=== PATIENT | female | born 1975 ===

== ENCOUNTER 2017-03-22 10:13 | Emergency (ER) | payer SELFPAY ==
[2017-03-22 10:33] VITALS: TEMP 97
--- NOTE | 2017-03-22 11:00 | ED PDOC ---
Lower Extremity Pain/Injury Time Seen by Provider: 03/22/17 10:31 Chief Complaint (Nursing): Lower Extremity Problem/Injury Chief Complaint (Provider): Left knee injury s/p mechanical fall History Per: Patient Onset/Duration Of Symptoms: Days (x7) Current Symptoms Are (Timing): Still Present Additional Complaint(s): Samantha Beasley is a 42 year old female presenting to the ED after experiencing a mechanical fall one week prior to arrival and experiencing an injury to her left knee. The patient reports pain, swelling, and ecchymosis since then but has not had time for a medical evaluation until today, prompted her ED visit. The patient reports pain worsens on ambulation. She denies any weakness or paresthesia. PMD: Vamsi Goldsmith MD Past Medical History Reviewed: Historical Data, Nursing Documentation, Vital Signs Vital Signs: Last Vital Signs Temp 97 F L 03/22/17 10:30 Pulse 71 03/22/17 10:30 Resp 18 03/22/17 10:30 BP 117/55 L 03/22/17 10:30 Pulse Ox 100 03/22/17 10:30 - Medical History PMH: No Chronic Diseases Denies: Chronic Kidney Disease - Family History Family History: States: Unknown Family Hx - Social History Current smoker - smoking cessation education provided: No Ex-Smoker (has not smoked in the last 12 months): No Alcohol: None Drugs: Denies - Home Medications Home Medications: Ambulatory Orders Medication Instructions Recorded Methylprednisolone [Medrol Dose 4 mg PO DAILY #21 mg 01/23/17 Pack (21 tabs)] diaZEpam [Valium] 5 mg PO Q6 PRN #6 tab 01/23/17 Naproxen [Naprosyn] 500 mg PO Q12H #20 tab 03/22/17 - Allergies Allergies/Adverse Reactions: Allergies Allergy/AdvReac Type Severity Reaction Status Date / Time crab Allergy ANGIOEDEMA Verified 03/22/17 10:30 Review of Systems ROS Statement: Except As Marked, All Systems Reviewed And Found Negative Musculoskeletal: Positive for: Leg Pain (left knee pain with swelling and ecchymosis) Neurological: Negative for: Weakness (or paresthesia) Physical Exam - Reviewed Nursing Documentation Reviewed: Yes Vital Signs Reviewed: Yes - Physical Exam Appears: Positive for: Non-toxic, No Acute Distress Head Exam: Positive for: ATRAUMATIC, NORMOCEPHALIC Extremity: Positive for: Normal ROM (to left lower extremity), Tenderness (left knee: and ecchymosis inferior to patella), Other (left knee: questionable effusion; no instability; no crepitus; no bony deformity) Neurologic/Psych: Positive for: Alert, Oriented (x3). Negative for: Motor/ Sensory Deficits - ECG O2 Sat by Pulse Oximetry: 100 (RA) Pulse Ox Interpretation: Normal Medical Decision Making Medical Decision Making: Time: 10:31 Impression: Left knee injury s/p mechanical fall Plan: * [RAD] Knee 3 Views LT Scribe Attestation: Documented by Lori Jack, acting as a scribe for Fam Anton MD. Provider Scribe Attestation: All medical record entries made by the Scribe were at my direction and personally dictated by me. I have reviewed the chart and agree that the record accurately reflects my personal performance of the history, physical exam, medical decision making, and the department course for this patient. I have also personally directed, reviewed, and agree with the discharge instructions and disposition. Disposition - Clinical Impression Clinical Impression: Knee sprain - Patient ED Disposition Is Patient to be Admitted: No Counseled Patient/Family Regarding: Studies Performed, Diagnosis, Need For Followup, Rx Given - Disposition Referrals: Alan Michel III, MD [Staff Provider] - Disposition: Routine/Home Disposition Time: 12:04 Condition: FAIR Prescriptions: Naproxen [Naprosyn] 500 mg PO Q12H #20 tab Instructions: Knee Sprain (ED) Forms: [employer] (Monegasque)
--- NOTE | 2017-03-22 11:49 | RAD ---
PROCEDURE: Left Knee Radiographs. HISTORY: Pain. COMPARISON: Comparison made with prior radiographs right knee 10/12/2009. FINDINGS: BONES: No evidence of acute displaced fracture nor dislocation. The osseous structures appear intact. JOINTS: Joint spaces preserved. No significant Osteoarthritis. JOINT EFFUSION: There appears to be a small suprapatellar joint effusions felt to be present. OTHER FINDINGS: None. IMPRESSION: No evidence of acute displaced fracture nor dislocation. Small suprapatellar joint effusion. If symptoms persist or occult fracture suspected clinically recommend repeat radiographs in 5-10 days as most fractures should become radiographically evident in this timeframe.
[2017-03-22 12:27] VITALS: BP 126/72; PULSE 72; RESP 16; O2SAT 98
== END 2017-03-22 12:27 | disposition home or self-care (01) ==
LOC: H.ER 10:13
DX: S83.92XA Sprain of unspecified site of left knee, initial encounter (principal); W19.XXXA Unspecified fall, initial encounter; Y92.89 Other specified places as the place of occurrence of the external cause

== ENCOUNTER 2017-12-03 15:05 | Emergency (ER) | payer SELFPAY ==
[2017-12-03 15:19] VITALS: BP 145/57; PULSE 63; RESP 16; TEMP 97.6; O2SAT 98
--- NOTE | 2017-12-03 15:33 | ED PDOC ---
Upper Extremity Pain/Injury Time Seen by Provider: 12/03/17 15:20 Chief Complaint (Nursing): Upper Extremity Problem/Injury Chief Complaint (Provider): Rigth wrist pain after trip and fall [employer] History Per: Patient History/Exam Limitations: no limitations Onset/Duration Of Symptoms: Mins Current Symptoms Are (Timing): Still Present Quality: Sharp Severity: Severe Pain Scale Rating Of: 8 Additional Complaint(s): 42 yo female with no medical problems presents for evaluation of right wrist pain after trip and fall. Pt states she wa holding on to railing with the left hand and fell on out stretched hand with the right. No numbness/tingling. Pain localized to the wrist. Pt took motrin [employer]CE and states it is not helping her pain. Past Medical History Reviewed: Historical Data, Nursing Documentation, Vital Signs Vital Signs: Last Vital Signs Temp 97.6 F 12/03/17 15:17 Pulse 63 12/03/17 15:17 Resp 16 12/03/17 15:17 BP 145/57 L 12/03/17 15:17 Pulse Ox 98 12/03/17 15:17 - Medical History PMH: No Chronic Diseases Denies: Chronic Kidney Disease - Surgical History Surgical History: No Surg Hx - Family History Family History: States: Unknown Family Hx - Living Arrangements Living Arrangements: With Family - Social History Current smoker - smoking cessation education provided: No - Home Medications Home Medications: Ambulatory Orders Medication Instructions Recorded Methylprednisolone [Medrol Dose 4 mg PO DAILY #21 mg 01/23/17 Pack (21 tabs)] diaZEpam [Valium] 5 mg PO Q6 PRN #6 tab 01/23/17 Naproxen [Naprosyn] 500 mg PO Q12H #20 tab 03/22/17 traMADol [Ultram] 50 mg PO Q6H PRN #10 tab 12/03/17 - Allergies Allergies/Adverse Reactions: Allergies Allergy/AdvReac Type Severity Reaction Status Date / Time crab Allergy ANGIOEDEMA Verified 12/03/17 15:13 Review of Systems ROS Statement: Except As Marked, All Systems Reviewed And Found Negative Constitutional: Negative for: Fever, Chills Musculoskeletal: Positive for: Arm Pain Skin: Negative for: Bruising Physical Exam - Reviewed Nursing Documentation Reviewed: Yes Vital Signs Reviewed: Yes - Physical Exam Appears: Positive for: Well, Non-toxic, No Acute Distress Head Exam: Positive for: ATRAUMATIC, NORMAL INSPECTION, NORMOCEPHALIC Skin: Positive for: Normal Color, Warm, DRY Eye Exam: Positive for: Normal appearance ENT: Positive for: Normal ENT Inspection Neck: Positive for: Normal Respiratory: Negative for: Accessory Muscle Use, Respiratory Distress Pulses-Radial (L): 2+ Pulses-Radial (R): 2+ Back: Positive for: Normal Inspection Extremity: Positive for: Normal ROM, Tenderness (Distal right radius, no snuff box tenderness ). Negative for: Deformity, Swelling Neurologic/Psych: Positive for: Alert - ECG O2 Sat by Pulse Oximetry: 98 Pulse Ox Interpretation: Normal Medical Decision Making Medical Decision Making: No acute fracture or dislocation. Discussed scaphoid fracture with patient. Given splint with thumb spica. Fu with orthopedics. Disposition - Clinical Impression Clinical Impression: Wrist sprain - Patient ED Disposition Is Patient to be Admitted: No Counseled Patient/Family Regarding: Diagnosis, Need For Followup, Rx Given - Disposition Referrals: Alan Michel III, MD [Staff Provider] - Disposition: Routine/Home Disposition Time: 15:51 Condition: GOOD Prescriptions: traMADol [Ultram] 50 mg PO Q6H PRN #10 tab PRN Reason: Pain Instructions: Wrist Sprain (DC) Forms: [employer] (Kenyan)
--- NOTE | 2017-12-03 17:51 | RAD ---
Date of service: 12/03/2017 PROCEDURE: Right Wrist Radiographs. HISTORY: pain, FOOSH COMPARISON: None. FINDINGS: BONES: No acute fracture or destructive bony lesion identified, including the right navicular bone. . JOINTS: Normal. No dislocation. SOFT TISSUES: Normal. OTHER FINDINGS: None. IMPRESSION: Unremarkable right wrist radiographs.
== END 2017-12-03 16:19 | disposition home or self-care (01) ==
LOC: H.ER 15:05
DX: S63.501A Unspecified sprain of right wrist, initial encounter (principal); W19.XXXA Unspecified fall, initial encounter; Y92.89 Other specified places as the place of occurrence of the external cause

== ENCOUNTER 2018-02-27 14:55 | Emergency (ER) | payer SELFPAY ==
[2018-02-27 15:05] VITALS: BP 119/73; PULSE 70; RESP 16; TEMP 97.8; O2SAT 97
[2018-02-27] MEDS ORDERED: PROPARACAINE/FLUORESCEIN SOD 100 DROP/5 ML BOTTLE OS STA (15:23)
--- NOTE | 2018-02-27 15:31 | ED PDOC ---
HPI: Eye Injury/Pain Time Seen by Provider: 02/27/18 15:07 Chief Complaint (Nursing): Eye Problem Chief Complaint (Provider): Left Eye Irritation History Per: Patient History/Exam Limitations: no limitations Onset/Duration Of Symptoms: Days (x1) Current Symptoms Are (Timing): Still Present Additional Complaint(s): 43 year old female presents to the ED for evaluation of left eye irritation beginning last night when out taking her baby for a walk. She since notes increased irritation and redness to the eye which is unchanged with over the counter drops. Patient reports it "feels like dust" is in the affected eye. Otherwise, denies glasses / contacts, vision changes, pain with eye movement, headache, dizziness, fever/chills, nausea, vomiting, cough. Tetanus up to date. LNMP: 02/11/2018 PMD: Marielle Past Medical History Reviewed: Historical Data, Nursing Documentation, Vital Signs Vital Signs: Last Vital Signs Temp 97.8 F 02/27/18 15:01 Pulse 70 02/27/18 15:01 Resp 16 02/27/18 15:01 BP 119/73 02/27/18 15:01 Pulse Ox 97 02/27/18 15:01 - Medical History PMH: Migraine - Surgical History Surgical History: No Surg Hx - Family History Family History: States: Unknown Family Hx - Immunization History Hx Tetanus Toxoid Vaccination: Yes (UTD) - Home Medications Home Medications: Ambulatory Orders Medication Instructions Recorded Methylprednisolone [Medrol Dose 4 mg PO DAILY #21 mg 01/23/17 Pack (21 tabs)] diaZEpam [Valium] 5 mg PO Q6 PRN #6 tab 01/23/17 Naproxen [Naprosyn] 500 mg PO Q12H #20 tab 03/22/17 RX: traMADol [Ultram] 50 mg PO Q6H PRN #10 tab 12/03/17 RX: Tobramycin 0.3% [Tobrex 0.3% 1 drop OS Q6 #[facility] - Allergies Allergies/Adverse Reactions: Allergies Allergy/AdvReac Type Severity Reaction Status Date / Time crab Allergy ANGIOEDEMA Verified 12/03/17 15:13 Review of Systems ROS Statement: Except As Marked, All Systems Reviewed And Found Negative Eyes: Positive for: Redness, Other (left eye irritation; foreign body sensation). Negative for: Vision Change ENT: Negative for: Nose Congestion Respiratory: Negative for: Cough Gastrointestinal: Negative for: Nausea, Vomiting Physical Exam - Reviewed Nursing Documentation Reviewed: Yes Vital Signs Reviewed: Yes - Physical Exam Comments: GENERAL APPEARANCE: Patient is awake, alert, oriented x 3, in no acute distress. Resting comfortably. NECK: Supple, FROM HEENT: (-) facial swelling and erythema, (-) facial blisters, (-) periorbital edema, erythema, warmth, or tenderness. Mucus membranes moist. Airway patent, (-) stridor. VISUAL ACUITIES: Left eye: 20/ 20 ; Right eye: 20/ 25 ; Bilateral: 20/ 15 . LIDS & LASHES: Normal. (-) crusting PUPILS: Pupils equal round and reactive to light. EOM's: Intact and painless LID EVERSION: (-) foreign body. CONJUNCTIVAE: Medial aspect of left conjunctiva: (+) erythema / hemorrhage, (-) chemosis. CORNEA: No embedded foreign body noted ANTERIOR CHAMBER: (-) foreign body, (-) hyphema FLUORESCEIN: (+) 2mm area of uptake to 10 o'clock position LUNGS: clear to auscultation bilaterally (-) rales (-) rhonchi (-) wheezing. Respirations even and nonlabored. CARDIAC: (-) irregularity - ECG O2 Sat by Pulse Oximetry: 97 (RA) Pulse Ox Interpretation: Normal Medical Decision Making Medical Decision Making: Initial Impression: eye irritation, subconjunctival hemorrhage Time: 1520 Initial Plan: --Flucaine 1 drop OS 1605 In light of fluoroscein uptake, tobramycin drops ordered. 1630 On re-evaluation, patient reports improvement of symptoms. On exam, patient remains AAOx3, in no acute distress. Lungs clear to auscultation, cardiac RRR, repeat neuro exam shows no focal findings. Vitals stable. Lab/Diagnostic results d/w the patient in great detail. Diagnosis of conjunctival abrasion/irritation/hemorrhage d/w the patient. Based on history, exam and diagnostic results, plan will be for outpatient follow up with ophtho. Patient instructed to follow-up with pmd / referral provided / the clinic in 1- 2 days without fail. Advised to take medication as prescribed. Return to the emergency room at any time for any new or worsening symptoms. Patient states she fully agrees with and understands discharge instructions. States that she agrees with the plan and disposition. Verbalized and repeated discharge instructions and plan. I have given the patient opportunity to ask any additional questions. Scribe Attestation: Documented by Melanie Cruz, acting as a scribe for Gladys Villa PA-C. Provider Scribe Attestation: All medical record entries made by the Scribe were at my direction and personally dictated by me. I have reviewed the chart and agree that the record accurately reflects my personal performance of the history, physical exam, medical decision making, and the department course for this patient. I have also personally directed, reviewed, and agree with the discharge instructions and disposition. Disposition - Clinical Impression Clinical Impression: Abrasion of conjunctiva, Eye irritation, Subconjunctival hemorrhage - Patient ED Disposition Is Patient to be Admitted: No Counseled Patient/Family Regarding: Studies Performed, Diagnosis, Need For Followup, Rx Given - Disposition Referrals: Usama Gold MD [Staff Provider] - [facility] [Outside] Disposition: Routine/Home Disposition Time: 16:30 Condition: STABLE Additional Instructions: FOLLOW UP WITH OPHTHO(EYE) SOON POSSIBLE. RETURN TO ED IF UNABLE TO MAKE APPT WITH OPHTHO. The emergency medical care you received today was directed at your acute symptoms. If you were prescribed any medication, please fill it and take as directed. It may take several days for your symptoms to resolve. Return to the Emergency Department if your symptoms worsen, do not improve, or if you have any other problems. Please contact your doctor in 2 days for re-evaluation and follow up / or call one of the physicians/clinics you have been referred to that are listed on the Patient Visit Information form that is included in your discharge packet. Bring any paperwork you were given at discharge with you along with any medications you are taking to your follow up visit. Our treatment cannot replace ongoing medical care by a primary care provider (PCP) outside of the emergency depa rtment. Prescriptions: RX: Tobramycin 0.3% [Tobrex 0.3% Ophth Soln] 1 drop OS Q6 #1 bottle Instructions: Corneal Abrasion (DC), Subconjunctival Hemorrhage Forms: [facility] (Kinyarwanda) Print Language: ICELANDIC - POA Present On Arrival: None
[2018-02-27] MEDS ORDERED: Tobramycin 0.3% OPHT SOLN OS ONE (15:47)
== END 2018-02-27 16:59 | disposition home or self-care (01) ==
LOC: H.ER 14:55
DX: H11.32 Conjunctival hemorrhage, left eye (principal)